=== PATIENT | male | born 1945 | race Caucasian/White ===

== ENCOUNTER 2016-11-10 14:55 | Emergency (ER) | payer MEDICARE, OTHER ==
--- NOTE | 2016-11-10 15:06 | ED Physician Documentation ---
General Adult - HISTORIAN Historian: patient - HPI Stated Complaint: R arm injury Chief Complaint: General Adult Onset: minutes Timing: still present Severity: moderate Further Comments: yes (Pt is a 71 yo male who got his R arm caught between a cow and a gate. Pt has swelling R forearm and pain in wrist and forearm abrasions. Tetanus is utd.) - ROS CONST: no problems EYES/ENT: none CVS/RESP: none GI/: none MS/SKIN/LYMPH: other (R arm injury) - PAST HX Past History: other (HTN, HLD, CAD) Allergies/Adverse Reactions: Allergies Allergy/AdvReac Type Severity Reaction Status Date / Time No Known Allergies Allergy Verified 11/10/16 15:07 Home Medications: Ambulatory Orders Medication Instructions Recorded Amiodarone HCl [Pacerone] 1 tab PO DAILY 11/08/13 Metoprolol Succinate [Toprol Xl] 1 tab PO DAILY 11/08/13 Atorvastatin Calcium 10 mg PO DAILY 06/30/16 Lisinopril [Prinivil] 5 mg PO QD 06/30/16 Warfarin Sodium [Warfarin Sodium] 5 mg PO DAILY 06/30/16 - SOCIAL HX Smoking History: non-smoker - FAMILY HX Family History: No - VITAL SIGNS Vital Signs: Vital Signs Temp Pulse Resp BP Pulse Ox 133/69 06/30/16 13:36 - REVIEWED ASSESSMENTS Nursing Assessment Reviewed: Yes Vitals Reviewed: Yes Progress - Progress Progress: X-ray R wrist: neg X-ray R forearm: neg General Adult Physical Exam - PHYSICAL EXAM GENERAL APPEARANCE: mild distress NECK: normal inspection, supple RESPIRATORY: no resp distress BACK: normal inspection SKIN: other (swelling, abrasions R forearm; R wrist tenderness.) EXTREMITIES: normal range of motion, no edema NEURO: oriented X3, motor nml, sensation nml Discharge Clincal Impression: R arm injury, contusion, hematoma Referrals: Libby Hay FNP [Primary Care Provider] - Home Medications: Ambulatory Orders Amiodarone HCl [Pacerone] 1 tab PO DAILY 11/08/13 Metoprolol Succinate [Toprol Xl] 1 tab PO DAILY 11/08/13 Atorvastatin Calcium 10 mg PO DAILY 06/30/16 Lisinopril [Prinivil] 5 mg PO QD 06/30/16 Warfarin Sodium [Warfarin Sodium] 5 mg PO DAILY 06/30/16 Condition: Good Disposition: 01 HOME, SELF-CARE Decision to Admit: NO Decision Time: 15:35
[2016-11-10 16:19] VITALS: BP 131/85
--- NOTE | 2016-11-10 17:29 | Diagnostic Imaging Report ---
[facility] [id number] [facility].[address] [id number] Report Submission Date: Nov 10, 2016 3:39:31 PM CDT Patient Study Name: HUMAIRA WHITE Date: Nov 10, 2016 3:15:16 PM CDT Modality Type: CR Gender: M Description: UPPER EXTREMITY : 49 Institution: [facility] Physician: VIANCA NOBLE - ER 2 views of the right forearm History: ARM PINNED BETWEEN LIVESTOCK AND GATE. PAIN AND SWELLING OVER ENTIRE WRIST. LACERATION ON ULNAR SIDE OF WRIST. PT STATES HX OF FRACTURE IN 4TH AND 5TH METACARPALS Findings: No comparison studies Extensive soft tissue swelling is noted along the dorsal aspect of the wrist, no evidence of acute fracture or dislocation Small osteophyte ulnar styloid. Impression: Soft tissue swelling and reticulation along the dorsal right distal forearm and wrist Intact radius and ulna Deformities at the bases of the metatarsals may be related to prior fractures Electronically signed on Nov 10, 2016 3:39:31 PM CDT by: Alis OLIVAS
--- NOTE | 2016-11-10 17:31 | Diagnostic Imaging Report ---
[facility] [address] [facility].[address] [address] Report Submission Date: Nov 10, 2016 3:33:19 PM CDT Patient Study Name: HUMAIRA WHITE Date: Nov 10, 2016 3:08:36 PM CDT Modality Type: CR Gender: M Description: UPPER EXTREMITY : 49 Institution: [facility] Physician: VIANCA NOBLE - ER 3 views of the right hand History: ARM PINNED BETWEEN LIVESTOCK AND GATE. PAIN AND SWELLING OVER ENTIRE WRIST. LACERATION ON ULNAR SIDE OF WRIST. PT STATES HX OF FRACTURE IN 4TH AND 5TH METACARPALS Findings: No comparison studies Soft tissue swelling at the right wrist along the ulnar aspect No obvious evidence of acute fracture or dislocation of the right wrist, joint spaces are preserved Impression: No evidence of acute fracture or dislocation of the right wrist Soft tissue swelling is present Electronically signed on Nov 10, 2016 3:33:19 PM CDT by: Alis OLIVAS
== END 2016-11-10 16:06 | disposition home or self-care (01) ==
LOC: ED 14:55
DX: S40.021A Contusion of right upper arm, initial encounter (principal); X58.XXXA Exposure to other specified factors, initial encounter; Y93.9 Activity, unspecified; Y99.9 Unspecified external cause status
CPT/HCPCS: 73090; 73110; 99283

== ENCOUNTER 2019-03-12 11:10 | Emergency (ER) | payer MEDICARE, OTHER ==
[2019-03-12 11:26] LABS: BASOPHILS % 0.6 % (0.0-1.5); NEUTROPHILS # 8.9 # k/uL (1.4-7.7)
--- NOTE | 2019-03-12 11:28 | ED Physician Documentation ---
Chest Pain - HPI Stated Complaint: Chest pain Chief Complaint: Chest Pain Additional Information: Patient presents to ED with a 18 hour history of left shoulder pain radiating into his left neck. Patient states he was been on a tractor for the past 4 days and thought this was the reason for the discomfort. Patient states the pain began yesterday around 1500 when he really wasn't doing anything. He states the pain is worse with deep breathing and coughing. He denies chest pain, shortness of breath or diaphoresis. He has a history of cardiac stent placement 2014. After his stent placement he had afib and was cardioverted at that time. He is on coumadin. Onset: hours (18) Timing: sudden onset Duration: persistent Last known Well Date: 03/11/19 Last Known Well Time: 15:00 Context: rest Severity: moderate Quality: sharp, stabbing Chest Pain Radiation: arms (left arm), shoulders Chest Pain Signs/Symptoms: denies: nausea, vomiting, diaphoresis, dizziness, hypotension Worsened By: deep breaths, movement Relieved By: rest - ROS CONST: none MS/LYMPH: none GI/: none EYES/ENT: none SKIN/ENDO: none NEURO/PSYCH: none - PAST HX DC risk factors: cardiac disease, A-Fib DVT/PE Risk Factors: none TAD/AAA risk factors: none Neuro deficit: none Lung disease: none Surgeries/Procedures: cardiac stent Allergies/Adverse Reactions: Allergies Allergy/AdvReac Type Severity Reaction Status Date / Time No Known Allergies Allergy Verified 03/12/19 11:22 Home Medications: Ambulatory Orders Medication Instructions Recorded Amiodarone HCl [Pacerone] 1 tab PO DAILY 11/08/13 Metoprolol Succinate (Nf) [Toprol 1 tab PO DAILY 11/08/13 Xl] Atorvastatin Calcium 10 mg PO DAILY 06/30/16 Lisinopril [Prinivil] 5 mg PO QD 06/30/16 Warfarin Sodium 5 mg PO DAILY 06/30/16 Baclofen 10 mg PO BID PRN #20 tablet 03/12/19 - SOCIAL HX Smoking History: non-smoker Alcohol Use: none Drug Use: none - FAMILY HX Family HX: none - VITAL SIGNS Vital Signs: Vital Signs Temp Pulse Resp BP Pulse Ox 98.2 F 94 H 26 H 153/92 93 03/12/19 11:10 03/12/19 11:10 03/12/19 11:10 03/12/19 11:10 03/12/19 11:10 - REVIEWED ASSESSMENTS Nursing Assessment Reviewed: Yes Vitals Reviewed: Yes Progress - EKG/XRAY/CT Comments: 1119 Atrial Fibrillation [address] elevation ED Results Lab/Radiology - Lab Results Lab Results: Lab Results 03/12/19 11:22 WBC 11.50 K/ul K/ul (4.00-12.00) RBC 4.73 M/ul M/ul (3.90-5.20) Hgb 15.7 g/dL g/dL (12.0-18.0) Hct 46.5 % % (37.0-53.0) MCV 98.0 fl fl (80.0-100.0) MCH 33.2 pg pg (28.0-34.0) MCHC 33.8 g/dL g/dL (30.0-36.0) RDW 11.8 % % (11.3-14.3) Plt Count 164 K/mm3 K/mm3 (130-400) Neut % (Auto) 77.1 % % (39.0-79.0) Lymph % (Auto) 13.7 % L % (16.0-50.0) Arroyo % (Auto) 6.4 % % (0.0-11.0) Eos % (Auto) 2.2 % % (0.0-6.8) Baso % (Auto) 0.6 % % (0.0-1.5) Neut # (Auto) 8.9 # k/uL H # k/uL (1.4-7.7) Lymph # (Auto) 1.6 # k/uL # k/uL (0.6-4.0) Arroyo # (Auto) 0.7 # k/uL # k/uL (0.0-0.9) Eos # (Auto) 0.3 # k/uL # k/uL (0.0-0.6) Baso # (Auto) 0.1 # k/uL # k/uL (0.0-0.5) - Orders Orders: ED Orders Category Date Time Status Place IV Lock 1T Care 03/12/19 11:16 Active CBC/PLATELET/DIFF Routine Lab 03/12/19 11:22 Completed CMP Routine Lab 03/12/19 11:22 Received TROPONIN I Stat Lab 03/12/19 11:22 Received EKG WITH COMPARISON Stat Ther 03/12/19 Ordered Chest Pain Physical Exam - EXAM General Appearance: no acute distress, alert EENT: ARIE Neck: nml inspection, other (point tenderness left posterior neck/upper trapezius) Respiratory: no resp. distress, nml breath sounds CVS: irregularly irreg. rhythm Abdomen: soft Skin: warm/dry, normal color Extremities: non-tender, no edema Neuro: oriented X3, CN's nml as tested, mood/affect nml Discharge Clincal Impression: Musculoskeletal pain Prescriptions: Baclofen 10 mg PO BID PRN #20 tablet PRN Reason: muscle spasm/pain Referrals: Libby Hay FNP [Primary Care Provider] - 2 Days Additional Instructions: 1. Tylenol as needed for pain 2. Baclofen every 12 hours as needed for pain/muscle spasm 3. Apply Ice or heat to affected area as needed for comfort 4. Massage therapy could be beneficial 5. Follow up with PCP within 1 week 6. Return to ER for new or worsening symptoms Condition: Stable Disposition: 01 HOME, SELF-CARE Decision to Admit: NO Date of Decison to Admit: 03/12/19 Decision Time: 13:02
[2019-03-12] MEDS: ONDANSETRON HCL/PF 4 MG/ 2ML VIAL IVP ONE (11:44)
[2019-03-12] MEDS: BACLOFEN 10 MG TABLET PO ONE (11:44)
[2019-03-12] MEDS: methylPREDNISolone SOD SUCC 125 MG/2 ML VIAL IVP ONE (11:44)
[2019-03-12] MEDS: 0.9 % SODIUM CHLORIDE 1,000 ML IV ONE (11:44)
[2019-03-12 11:52] LABS: eGFR (Non-African) > 60
[2019-03-12] MEDS: HYDROcodone /APAP 5/325 1 EACH TABLET PO ONE (13:02)
[2019-03-12 13:18] VITALS: BP 147/90
--- NOTE | 2019-03-12 15:09 | Diagnostic Imaging Report ---
KATHERIN SANTO [facility] [id number] [facility].[address] [address] Report Submission Date: Mar 12, 2019 1:05:00 PM CDT Patient Study Name: HUMAIRA WHITE Date: Mar 12, 2019 12:41:00 PM CDT Modality Type: DX Gender: M Description: CHEST 1VIEW : 49 Institution: [facility] Physician: KATHERIN SANTO Exam: AP portable chest. History: Left-sided chest pain. No previous studies are available for comparison. Lung cunningham are well aerated without ki consolidation or effusion. Degenerative changes in the left glenohumeral joint and left acromioclavicular joint is noted. Impression: No ki consolidation or effusion. Electronically signed on Mar 12, 2019 1:05:00 PM CDT by: Jim OLIVAS
== END 2019-03-12 13:15 | disposition home or self-care (01) ==
LOC: ED 11:10
DX: R07.89 Other chest pain (principal); M25.512 Pain in left shoulder; M54.2 Cervicalgia
CPT/HCPCS: 71045; 80053; 84484; 85025; 85610; 96361; 96374; 96375; 99283; 99284; J2405; J2930; A9270-GY; J7030; S1016